=== PATIENT | female | born 2005 | race African-American/Black ===

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

== ENCOUNTER 2025-05-28 22:46 | Emergency (ER) | payer OTHER ==
[2025-05-28 23:04] VITALS: BP 136/82; PULSE 86
== END 2025-05-29 01:17 | disposition home or self-care (01) ==
LOC: MW.ED 22:46
DX: S99.911A Unspecified injury of right ankle, initial encounter (principal); S99.921A Unspecified injury of right foot, initial encounter; Z79.899 Other long term (current) drug therapy; Y93.44 Activity, trampolining; X58.XXXA Exposure to other specified factors, initial encounter
CPT/HCPCS: 73590; 73610; 73630; 99283; A9270

== ENCOUNTER 2025-05-29 20:16 | Emergency (ER) | payer OTHER ==
[2025-05-29 20:30] VITALS: BP 122/81; PULSE 84
[2025-05-29 20:49] LABS: APPEARANCE,URINE CLEAR; GLUCOSE,URINE NEGATIVE (NEGATIVE); OCCULT BLOOD,URINE NEGATIVE (NEGATIVE)
== END 2025-05-29 21:23 | disposition home or self-care (01) ==
LOC: MW.ED 20:16
DX: Z13.89 Encounter for screening for other disorder (principal); Z87.440 Personal history of urinary (tract) infections; Z75.3 Unavailability and inaccessibility of health-care facilities
CPT/HCPCS: 81003; 81025; 99283

== ENCOUNTER 2025-09-12 13:13 | Emergency (ER) | payer OTHER ==
[2025-09-12] MEDS: Dexamethasone Sod Phos Preservative Free 10 MG/ML Vial IVPUSH ONE (13:40)
[2025-09-12 14:54] VITALS: BP 119/75; PULSE 100
== END 2025-09-12 14:54 | disposition home or self-care (01) ==
LOC: MW.ED 13:13
DX: B34.9 Viral infection, unspecified (principal); Z75.3 Unavailability and inaccessibility of health-care facilities
CPT/HCPCS: 71046; 87428; 87651; 96374; 99283; A9270; J1100